=== PATIENT | female | born 2000 | race African-American/Black ===

== ENCOUNTER 2023-12-01 13:27 | Emergency (ER) | payer MEDICAID ==
[~2023-12-01] VITALS: Ht 160 cm; Wt 70.3 kg
[2023-12-01 13:43] VITALS: BP 107/73; PULSE 83; RESP 16; TEMP 98.2; O2SAT 97
[2023-12-01] MEDS ORDERED: CIPR500T4 PO (14:19)
[2023-12-01] MEDS ORDERED: OMEP40EC23 PO (14:19)
[2023-12-01] MEDS ORDERED: IBUP-2213 PO (14:19)
[2023-12-01 14:31] VITALS: BP 111/71; PULSE 79; RESP 14; TEMP 97.5; O2SAT 98
[2023-12-01 14:36] LABS: APPEARANCE,URINE TURBID (CLEAR); BILIRUBIN,URINE NEGATIVE (NEGATIVE); BLOOD, URINE NEGATIVE (NEGATIVE); COLOR,URINE YELLOW (YELLOW); LEUKOCYTE ESTERASE ,URINE NEGATIVE (NEGATIVE); NITRITE, URINE NEGATIVE (NEGATIVE); PH,URINE 6.5 (5.0-9.0); PROTEIN,URINE NEGATIVE (NEGATIVE); UGLUCOSE NEGATIVE (NEGATIVE)
== END 2023-12-01 14:30 | disposition home or self-care (01) ==
LOC: MED 13:27
DX: R10.30 Lower abdominal pain, unspecified (principal); R19.7 Diarrhea, unspecified; K21.9 Gastro-esophageal reflux disease without esophagitis; F12.90 Cannabis use, unspecified, uncomplicated; Z79.1 Long term (current) use of non-steroidal anti-inflammatories (NSAID); Z79.2 Long term (current) use of antibiotics; Z79.899 Other long term (current) drug therapy
CPT/HCPCS: 81003; 81025; 99283